=== PATIENT | female | born 1960 | race Caucasian/White ===

== ENCOUNTER 2024-04-13 09:46 | Emergency (ER) | payer MEDICARE ==
[2024-04-13 09:58] VITALS: O2SAT 100
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
[2024-04-13] MEDS: DEXAMETHASONE 10 MG/ML VIAL PO STA (10:19)
[2024-04-13] MEDS: CHERRY SYRUP 10 ML UDC PO ONE (10:19)
[2024-04-13] MEDS: IPRATROPIUM/ALBUTEROL 3 ML NEB INH STA (10:20)
--- NOTE | 2024-04-13 10:21 | XRAY Report ---
PROCEDURE: Chest 1V INDICATIONS: chest pain/soa TECHNIQUE: One view of the chest was acquired. COMPARISON: None. FINDINGS: Surgical changes and devices: None. Lungs and pleura: No pleural effusions or pneumothorax. Lungs are clear. Mediastinum: Mediastinal contours appear normal. Heart size is normal. Bones and chest wall: No suspicious bony lesions. Overlying soft tissues appear unremarkable. IMPRESSION: No acute cardiopulmonary process. Reviewed by: Cole Conde MD on 04/13/2024 10:20 AM PDT Approved by: Cole Conde MD on 04/13/2024 10:20 AM PDT Station ID: [id number]
[2024-04-13 11:00] LABS: B. PARAPERTUSSIS- RESP PCR PAN NOT DETECTED; B. PERTUSSIS- RESP PCR PANEL NOT DETECTED; C. PNEUMONIAE- RESP PCR PANEL NOT DETECTED; CORONAVIRUS 229E-RESP PCR NOT DETECTED; CORONAVIRUS HKU1-RESP PCR NOT DETECTED; CORONAVIRUS NL63-RESP PCR NOT DETECTED; CORONAVIRUS OC43-RESP PCR NOT DETECTED; HUMAN METAPNEUMOVIRUS NOT DETECTED; INFLUENZA A- RESP PCR PANEL NOT DETECTED; INFLUENZA B - RESP PCR PANEL NOT DETECTED; M. PNEUMONIAE- RESP PCR PANEL NOT DETECTED; PARAINFLUENZA VIRUS 1 NOT DETECTED; PARAINFLUENZA VIRUS 2 NOT DETECTED; PARAINFLUENZA VIRUS 3 DETECTED; PARAINFLUENZA VIRUS 4 NOT DETECTED; RHINOVIRUS/ENTEROVIRUS DETECTED; RSV- RESP PCR PANEL NOT DETECTED; SARS-CoV-2 -RESP PCR PANEL NOT DETECTED
[2024-04-13 12:05] VITALS: BP 110/73
== END 2024-04-13 11:56 | disposition home or self-care (01) ==
LOC: ED 09:46
DX: J45.21 Mild intermittent asthma with (acute) exacerbation (principal); B34.8 Other viral infections of unspecified site; J44.9 Chronic obstructive pulmonary disease, unspecified; E78.00 Pure hypercholesterolemia, unspecified; E03.9 Hypothyroidism, unspecified; Z85.3 Personal history of malignant neoplasm of breast
CPT/HCPCS: 71045; 87633; 94640; 99284; A9270